=== PATIENT | male | born 1965 | race Two or more races ===

== ENCOUNTER 2022-07-04 09:15 | Inpatient (IN) | payer OTHER ==
[~2022-07-04] VITALS: Ht 177.8 cm; Wt 115.7 kg
--- NOTE | 2022-07-04 10:20 | NUR ---
ESTABLISHED IV RIGHT WRIST 20G. BLOOD DRAWN WITH CULTURES SENT TO LAB.
[2022-07-04] MEDS ORDERED: VANCOMYCIN 1 GM in IV D5W 250 ML IV ONE (10:30)
[2022-07-04] MEDS ORDERED: ACETAMINOPHEN ES 500 MG TABLET PO ONE (10:30)
[2022-07-04] MEDS ORDERED: CEFEPIME 1 GM in IV D5W 50 ML IV ONE (10:30)
[2022-07-04 10:33] LABS: EOSINOPHILS % (AUTO) 0.5 % (0.0-6.0); HEMATOCRIT 41 % (39-51); HEMOGLOBIN 13.5 g/dL (13.5-17.5); LYMPHOCYTES # (AUTO) 0.4 K/uL (0.8-4.8); MEAN CORPUSCULAR HGB CONC 33 g/dl (31.0-36.0); MEAN CORPUSCULAR VOLUME 84 fL (80-96); MONOCYTES # (AUTO) 0.6 K/uL (0.1-1.30); MONOCYTES % (AUTO) 6.3 % (2.0-12.0); NEUTROPHILS # (AUTO) 9.2 K/uL (1.8-8.9); NEUTROPHILS % (AUTO) 89.2 % (43.0-81.0); PLATELET COUNT (AUTO) 320 K/uL (150-450); RED BLOOD CELL COUNT(AUTO) 4.94 MIL/uL (4.5-6.0); WHITE BLOOD COUNT (AUTO) 10.3 K/uL (4.3-11.0)
[2022-07-04] MEDS ORDERED: ACETAMINOPHEN ES 500 MG TABLET ONE ×2 (10:53→10:54)
--- NOTE | 2022-07-04 11:00 | NUR ---
[id number] FROM [facility] C/O BILAT FOOT PAIN. SOB SINCE THIS AM. FEBRILE RETAIL SALES LEAD. PLACED ON BED, AAOX3, BREATHING UNLABORED SATURATING AT 94% WITH O2 5LIT VIA NC
--- NOTE | 2022-07-04 11:00 | NUR ---
Delilah foreman in EDM - 07/04/22 at 1219 by ASHLEY [id number] FROM [facility] C/O BILAT FOOT PAIN. SOB SINCE THIS AM. FEBRILE TIP LENGTH CHECKER. PLACED ON BED, AAOX4, BREATHING UNLABORED SATURATING AT 95% WITH O2 5LIT VIA NC.
--- NOTE | 2022-07-04 11:04 | NUR ---
PATIENT CURRENTLY OUT OF UNIT FOR CT EXAM
[2022-07-04 11:10] LABS: CALCIUM, SERUM 8.3 mg/dL (8.5-10.1); CARBON DIOXIDE 26 mmol/L (21-32); CHLORIDE 98 mmol/L (98-107); CREATININE 0.8 mg/dL (0.6-1.3); GLUCOSE 175 mg/dL (74-106); POTASSIUM 3.3 mmol/L (3.5-5.1); SODIUM SERUM 135 mmol/L (136-145); UREA NITROGEN, BLOOD 8 mg/dL (7-18)
--- NOTE | 2022-07-04 11:17 | NUR ---
Delilah foreman in [facility] - 07/04/22 at 1136 by DESTINEE room 321
[2022-07-04 11:32] LABS: ALANINE AMINOTRANSFERASE 23 U/L (12-78); ALBUMIN 2.9 g/dL (3.4-5.0); ALCOHOL, BLOOD < 3 mg/dL (0-0); ALKALINE PHOSPHATASE 196 U/L (46-116); ASPARTATE AMINOTRANSFERASE 41 U/L (15-37); BILIRUBIN,DIRECT 3.2 mg/dL (0.0-0.2); BILIRUBIN,TOTAL 5.2 mg/dL (0.2-1.0); TOTAL PROTEIN, SERUM 8.2 g/dL (6.4-8.2)
[2022-07-04 11:34] LABS: ACETAMINOPHEN 0 ug/ml (10-30)
--- NOTE | 2022-07-04 11:38 | NUR ---
covid swab taken
[2022-07-04 11:50] LABS: SERUM AMMONIA 97 umol/L (11-32)
[2022-07-04 11:52] LABS: ALCOHOL, BLOOD < 3 mg/dL (0-0)
[2022-07-04 12:01] LABS: THYROID STIMULATING HORMONE 2.367 uIU/mL (0.358-3.74)
--- NOTE | 2022-07-04 12:24 | NUR ---
NEY NEGRETE [phone] AUTH #[id number]
--- NOTE | 2022-07-04 12:38 | NUR ---
COVID + PER LAB.
--- NOTE | 2022-07-04 13:55 | NUR ---
REPORT GIVEN TO REMBERTO DE LA GARZA RN ROOM 108 FOR LAMBERT
[2022-07-04] MEDS ORDERED: ONDANSETRON HCL/PF 4 MG/2 ML VIAL IVP PRN (15:00)
[2022-07-04] MEDS ORDERED: MAGNESIUM HYDROXIDE 30 ML UDC PO PRN (15:00)
[2022-07-04] MEDS ORDERED: HYDROCODONE/APAP 5/325MG TABLET PO PRN (15:00)
[2022-07-04] MEDS ORDERED: MAG HYDROX/AL HYDROX/SIMETH 30 ML UDC PO PRN (15:00)
[2022-07-04] MEDS ORDERED: Z GUARD REMEDY 4 OZ OINT TP PRN (15:00)
[2022-07-04] MEDS ORDERED: ZOLPIDEM TARTRATE 5 MG TABLET PO PRN (15:00)
--- NOTE | 2022-07-04 15:30 | NUR ---
ADMISSION NOTE RECEIVED PATIENT FROM ER, A/O X3, LETHARGIC BUT ABLE TO COMMUNICATE. ON OXYGEN AT 4LPM TOLERATING WELLL WITH SPO2 OF 97%. VITALS TAKEN AND RECORDED. PLACED ON TELE MONITOR WITH READING OF SINUS TACHYCARDIA HR 109. SAFETY MEASURES IMPLEMENTED. WILL CONTINUE TO MONITOR.
[2022-07-04] MEDS: ENOXAPARIN SODIUM 40 MG/0.4 ML DISP.SYRIN SQ SCH (16:57)
[2022-07-04] MEDS ORDERED: POTASSIUM CHLORIDE 20 MEQ TAB.PRT.SR PO ONE (17:30)
[2022-07-04] MEDS: CEFEPIME 2 GM in IV D5W 100 ML IV SCH (18:04)
[2022-07-04 19:03] VITALS: BP 122/73
--- NOTE | 2022-07-04 19:30 | NUR ---
RN OPENING NOTE PT SLEEPING IN R LATERAL POSITION. HOB ELEVATED. O2 SAT OF 97% ON 4 LPM NC. SKIN WARM AND DRY. BLE PITTING EDEMA NOTED. R WRIST 20G SALINE LOCKED. NO ACUTE SIGNS OF DISTRESS. BED LOCKED AND AT LOWEST LEVEL WITH 2 RAILS UP. CALL LIGHT WITHIN REACH.
--- NOTE | 2022-07-04 19:30 | NUR ---
TEACHERS' AIDE CLOSING NOTE PATIENT AWAKE IN BED A/O X 3. ON O2 INHALATION @ 4 LPM VIA NASAL CANNULA; WELL TOLERATED. BREATHING EQUAL AND UNLABORED. IN NO ACUTE DISTRESS. NO C/O ANY PAIN OR DISCOMFORT AT THIS TIME. ON TELE MONITORING WITH CURRENT READING OF SINUS TACHY HR-113 BPM. WITH IV ACCESS ON RIGHT WRIST 20G; PATENT, INTACT AND SALINE LOCKED. ALL MEDS GIVEN. KEPT COMFORTABLE. SAFETY MEASURES MAINTAINED: CALL LIGHT AND TABLE WITHIN REACH, SIDE RAILS UP X 2, BED IN LOWEST LOCKED POSITION. ENDORSED TO NEXT NOD FOR LAMBERT.
[2022-07-04 20:00] VITALS: BP 105/45
[2022-07-04] MEDS: VANCOMYCIN 1.25 GM in IV D5W 250 ML IV SCH (20:45)
[2022-07-05] VITALS: BP 109/59
[2022-07-05] MEDS: CEFEPIME 2 GM in IV D5W 100 ML IV SCH ×3 (03:14→18:05)
[2022-07-05 04:00] VITALS: BP 95/41
[2022-07-05] MEDS: VANCOMYCIN 1.25 GM in IV D5W 250 ML IV SCH ×3 (04:14→20:58)
[2022-07-05] MEDS: ACETAMINOPHEN 325 MG TABLET PO PRN ×2 (04:22→17:41)
--- NOTE | 2022-07-05 04:50 | NUR ---
0453 PATIENT NOTED TO HAVE RUNS OF V TACH 17 BEATS, LUCY SIMPSON NOTIFIED WITH INSTRUCTIONS TO DO AM LABS NOW. TICKET MANAGER PARDEEP MADE AWARE.
[2022-07-05 05:59] LABS: BASOPHILS % (AUTO) 0.5 % (0.0-2.0); EOSINOPHILS % (AUTO) 0.3 % (0.0-6.0); HEMATOCRIT 38 % (39-51); HEMOGLOBIN 12.5 g/dL (13.5-17.5); LYMPHOCYTES # (AUTO) 0.7 K/uL (0.8-4.8); LYMPHOCYTES % (AUTO) 8.6 % (20.0-44.0); MEAN CORPUSCULAR HGB CONC 33 g/dl (31.0-36.0); MEAN CORPUSCULAR VOLUME 83 fL (80-96); MONOCYTES # (AUTO) 1.2 K/uL (0.1-1.30); MONOCYTES % (AUTO) 14.4 % (2.0-12.0); NEUTROPHILS # (AUTO) 6.5 K/uL (1.8-8.9); NEUTROPHILS % (AUTO) 76.2 % (43.0-81.0); PLATELET COUNT (AUTO) 276 K/uL (150-450); RED BLOOD CELL COUNT(AUTO) 4.59 MIL/uL (4.5-6.0); WHITE BLOOD COUNT (AUTO) 8.5 K/uL (4.3-11.0)
[2022-07-05 06:15] LABS: CALCIUM, SERUM 8.3 mg/dL (8.5-10.1); CREATININE 0.7 mg/dL (0.6-1.3); MAGNESIUM 1.8 mg/dL (1.8-2.4); PHOSPHORUS 3.2 mg/dL (2.5-4.9); POTASSIUM 3.7 mmol/L (3.5-5.1)
--- NOTE | 2022-07-05 07:06 | NUR ---
RN CLOSING NOTE PT SLEEPING BUT AROUSABE TO TOUCH. SKIN IS WARM AND DRY. RESPIRATIONS SHALLOW AND TACHYPNIC ON 4 LPM NC. PT'S TEMP HAS IMPROVED TO 98 AFTER ADMINISTERING TYLENOL. PROVIDER NOTIFIED OF MULTIPLE VTACH BEATS DETECTED DURING SHIFT. CONDOM CATHETER INTACT AND DRAINING APPROPRIATELY. R WRIST 20G SL. BED LOCKED AND AT LOWEST LEVEL. 2 RAILS UP AND CALL LIGHT WITHIN REACH.
--- NOTE | 2022-07-05 07:47 | NUR ---
FIRST BEATER OPENING NOTE Patient in bed, asleep. A/O x 2. On O2 at 4 LPM via NC. IV access on Right wrist #20 SL, intact and patent. Condom catheter in place. On tele monitoring showing SR, HR on the 90's. BLE redness noted. Safety precautions in place: bed in low, locked position; siderails up x 2; call light within reach. Will continue to monitor.
[2022-07-05 08:00] VITALS: BP 108/62
[2022-07-05] MEDS: PANTOPRAZOLE 40 MG TABLET.DR PO SCH (08:38)
[2022-07-05] MEDS ORDERED: LACTULOSE 10 G/15 ML UDC (PYXIS) PO PRN (10:00)
[2022-07-05] MEDS: DEXAMETHASONE SOD PHOSPHATE 10 MG/ML VIAL IV SCH (10:45)
--- NOTE | 2022-07-05 11:00 | NUR ---
RN NOTE IV access on Right wrist infiltrated. IV re-inserted same area, Right wrist #18, flushes well.
[2022-07-05 12:00] VITALS: BP 106/66
--- NOTE | 2022-07-05 13:00 | NUR ---
RN NOTE Both nares swabbed for Rapid antigen influenza test, sent to lab.
[2022-07-05 16:00] VITALS: BP 118/71
[2022-07-05] MEDS: ENOXAPARIN SODIUM 40 MG/0.4 ML DISP.SYRIN SQ SCH (16:30)
[2022-07-05] MEDS: MORPHINE SULFATE INJ 2 MG/ML DISP.SYRIN IV PRN ×2 (17:42→22:56)
--- NOTE | 2022-07-05 19:20 | NUR ---
CONFECTIONERY MAKER CLOSING NOTE Patient in bed, resting. A/O x 2, able to make needs known. On O2 at 4 LPM via NC. IV access on Right wrist #18 SL, intact and patent. Condom catheter in place draining to an luther colored urine with an output of 540 cc. . On tele monitoring showing Sinus tachycardia, HR 106. BLE redness and dryness noted. All needs attended to. Due meds given. Safety precautions in place: bed in low, locked position; siderails up x 2; call light within reach. Will endorse to typer nurse for LAMBERT.
--- NOTE | 2022-07-05 19:30 | NUR ---
CALENDER LET OFF HELPER OPENING NOTE Patient in bed, asleep. Pt A/O x 2. No s/s of respiratory distress noted. No c/o pain at this time. On O2 at 4 L PM via NC. IV access to Right wrist #20 SL, intact and patent. Condom catheter in place. On tele monitoring showing SR. BLE redness noted. Safety precautions in place: bed in low, locked position; side rails up x 2; call light within reach. Will continue to monitor.
[2022-07-05 20:00] VITALS: BP 125/76
--- NOTE | 2022-07-05 22:55 | NUR ---
RN NOTE PT C/O PAIN TO BLE. MORPHINE ADMINISTERED TO PT FOR PAIN.
[2022-07-06] VITALS: BP 118/75
[2022-07-06] MEDS: CEFEPIME 2 GM in IV D5W 100 ML IV SCH ×3 (02:58→18:04)
[2022-07-06 04:00] VITALS: BP 138/80
[2022-07-06] MEDS: VANCOMYCIN 1.25 GM in IV D5W 250 ML IV SCH ×2 (04:32→11:42)
--- NOTE | 2022-07-06 05:25 | NUR ---
RN NOTE PT REPORT PAIN TO BLE. PAIN MED MORPHINE ADMINISTERED TO PT.
[2022-07-06] MEDS: MORPHINE SULFATE INJ 2 MG/ML DISP.SYRIN IV PRN ×3 (05:27→19:50)
--- NOTE | 2022-07-06 07:05 | NUR ---
SCRAPER HAND CLOSING NOTE Patient in bed, resting. A/O x 2, able to make needs known. On O2 at 4 LPM via NC. IV access on Right wrist #18 SL, intact and patent. Condom catheter in place draining luther colored urine with an output of 250 cc. . On tele monitoring showing Sinus tachycardia, HR 92. BLE redness and dryness noted. All needs attended to. Due meds given. Safety precautions in place: bed in low, locked position; side rails up x 2; call light within reach. Will endorse to AM shift nurse for LAMBERT.
[2022-07-06 07:15] LABS: BASOPHILS % (AUTO) 0.1 % (0.0-2.0); HEMATOCRIT 39 % (39-51); HEMOGLOBIN 12.8 g/dL (13.5-17.5); LYMPHOCYTES # (AUTO) 0.6 K/uL (0.8-4.8); LYMPHOCYTES % (AUTO) 9.1 % (20.0-44.0); MEAN CORPUSCULAR HGB CONC 33 g/dl (31.0-36.0); MEAN CORPUSCULAR VOLUME 84 fL (80-96); MONOCYTES # (AUTO) 0.6 K/uL (0.1-1.30); MONOCYTES % (AUTO) 9.3 % (2.0-12.0); NEUTROPHILS % (AUTO) 81.5 % (43.0-81.0); PLATELET COUNT (AUTO) 300 K/uL (150-450); RED BLOOD CELL COUNT(AUTO) 4.66 MIL/uL (4.5-6.0); WHITE BLOOD COUNT (AUTO) 6.2 K/uL (4.3-11.0)
--- NOTE | 2022-07-06 07:27 | NUR ---
HAT BODY INSPECTOR OPENING NOTE RECEIVED PT AWAKE AND RESTING IN BED. PT A/O X2, ABLE TO MAKE NEEDS KNOWN. PT ON O2 AT 4L/MIN VIA NASAL CANNULA, TOLERATED WELL. NO SOB NOTED. NOT IN ANY SIGN OF RESPIRATORY DISTRESS. PT ON CARDIAC TELE MONITOR WITH CURRENT READING SINUS RHYTHM, HR 80. NO C/O CARDIAC DISTRESS VOICED OUT AT THIS TIME. IV ACCESS ON RIGHT WRIST G#18 INTACT AND PATENT. SAFETY MEASURES IN PLACE: BED IN LOWEST AND LOCKED POSITION, SIDE RAILS UPX2, AND CALL LIGHT WITHIN REACH. WILL CONTINUE TO MONITOR PT.
[2022-07-06 07:34] LABS: CALCIUM, SERUM 8.6 mg/dL (8.5-10.1); CREATININE 0.7 mg/dL (0.6-1.3); PHOSPHORUS 4.2 mg/dL (2.5-4.9); POTASSIUM 4.7 mmol/L (3.5-5.1)
[2022-07-06 08:00] VITALS: BP 111/70
[2022-07-06] MEDS: DEXAMETHASONE SOD PHOSPHATE 10 MG/ML VIAL IV SCH (08:17)
[2022-07-06] MEDS: PANTOPRAZOLE 40 MG TABLET.DR PO SCH (08:17)
[2022-07-06 08:24] LABS: ALBUMIN 2.5 g/dL (3.4-5.0); BILIRUBIN,DIRECT 2.2 mg/dL (0.0-0.2); BILIRUBIN,TOTAL 2.8 mg/dL (0.2-1.0); TOTAL PROTEIN, SERUM 7.8 g/dL (6.4-8.2)
[2022-07-06 09:31] LABS: ALBUMIN 2.5 g/dL (3.4-5.0); BILIRUBIN,DIRECT 2.2 mg/dL (0.0-0.2); BILIRUBIN,TOTAL 2.8 mg/dL (0.2-1.0); TOTAL PROTEIN, SERUM 7.8 g/dL (6.4-8.2)
[2022-07-06 12:00] VITALS: BP 116/72
[2022-07-06 15:04] LABS: BILIRUBIN,URINE 1+ (NEGATIVE); COLOR,URINE YELLOW (YELLOW); LEUKOCYTE ESTERASE ,URINE NEGATIVE (NEGATIVE); NITRITE, URINE NEGATIVE (NEGATIVE); PROTEIN,URINE TRACE mg/dl (NEGATIVE); UGLUCOSE NEGATIVE (NEGATIVE)
[2022-07-06] MEDS: ENOXAPARIN SODIUM 40 MG/0.4 ML DISP.SYRIN SQ SCH (15:04)
[2022-07-06 16:00] VITALS: BP 131/63
[2022-07-06 16:32] LABS: BACTERIA,URINE 2+ /HPF (None Seen); CALCIUM OXALATE CRYSTALS,UR Few /HPF (None Seen); RBC,URINE 0-2 /HPF (0-2); WBC,URINE 0-2 /HPF (0-3)
--- NOTE | 2022-07-06 18:46 | NUR ---
SAP BASIS ARCHITECT CLOSING NOTE PT AWAKE AND RESTING IN BED. PT A/O X3, ABLE TO MAKE NEEDS KNOWN. PT ON O2 AT 4L/MIN VIA NASAL CANNULA, TOLERATED WELL. NO SOB NOTED. NOT IN ANY SIGN OF RESPIRATORY DISTRESS. PT ON CARDIAC TELE MONITOR WITH CURRENT READING SINUS RHYTHM, HR 78. NO C/O CARDIAC DISTRESS VOICED OUT AT THIS TIME. IV ACCESS ON RIGHT WRIST G#18 INTACT AND PATENT. ALL NEEDS ATTENDED. KEPT CLEAN AND COMFORTABLE AT ALL TIMES. SAFETY MEASURES IN PLACE: BED IN LOWEST AND LOCKED POSITION, SIDE RAILS UPX2, AND CALL LIGHT WITHIN REACH. WILL ENDORSE TO TESTER OPERATOR HELPER NURSE FOR LAMBERT.
--- NOTE | 2022-07-06 19:30 | NUR ---
RN OPENING NOTE RECEIVED PT IN BED, AWAKE. PT IS A/O X 2-3, ABLE TO MAKE NEEDS KNOWN. CURRENTLY ON O2 AT 4L/MIN VIA NASAL CANNULA, TOLERATING WELL. NO S/SX OF ACUTE RESPI DISTRESS NOTED AT THIS TIME. ON CARDIAC TELE MONITOR WITH CURRENT READING OF SINUS RHYTHM, HR 90s. IV ACCESS ON RIGHT WRIST G#18 INTACT AND PATENT, SL. PT HAS BLE CELLULITIS UPON ASSESSMENT WITH DRY SKIN NOTED. CONDOM CATH IN PLACE DRAINING YELLOW URINE BY GRAVITY. ALL SAFETY MEASURES IN PLACE: BED IN LOWEST AND LOCKED POSITION, SIDE RAILS UPX2, AND CALL LIGHT WITHIN REACH. WILL CONTINUE TO MONITOR PT.
[2022-07-06] MEDS: VANCOMYCIN 1.25 GM in IV NS 0.9% 250 ML IV SCH (19:41)
[2022-07-06 20:00] VITALS: BP 131/81
[2022-07-07] VITALS (7 sets, daily range): BP systolic 115–134; BP diastolic 77–91
[2022-07-07] MEDS: CEFEPIME 2 GM in IV D5W 100 ML IV SCH ×3 (02:49→18:28)
[2022-07-07] MEDS: VANCOMYCIN 1.25 GM in IV NS 0.9% 250 ML IV SCH (03:09)
--- NOTE | 2022-07-07 05:49 | NUR ---
RN CLOSING NOTE NO SIGNIFICANT CHANGE T/O THE NIGHT. ALL DUE MEDS GIVEN. NEEDS ATTENDED TO. PM CARE DONE. TURNED AND REPOSITIONED. WILL ENDORSE TO AM SHIFT NURSE FOR LAMBERT.
[2022-07-07 06:51] LABS: BASOPHILS % (AUTO) 0.1 % (0.0-2.0); HEMATOCRIT 40 % (39-51); HEMOGLOBIN 12.8 g/dL (13.5-17.5); LYMPHOCYTES # (AUTO) 0.7 K/uL (0.8-4.8); MEAN CORPUSCULAR HGB CONC 32 g/dl (31.0-36.0); MEAN CORPUSCULAR VOLUME 84 fL (80-96); NEUTROPHILS # (AUTO) 8.9 K/uL (1.8-8.9); NEUTROPHILS % (AUTO) 83.9 % (43.0-81.0); PLATELET COUNT (AUTO) 304 K/uL (150-450); RED BLOOD CELL COUNT(AUTO) 4.72 MIL/uL (4.5-6.0); WHITE BLOOD COUNT (AUTO) 10.6 K/uL (4.3-11.0)
--- NOTE | 2022-07-07 07:12 | NUR ---
WOUND CARE CONSULT: REVIEWED CHART, NURSING DOCUMENTATION AND PHOTOS WHICH INDICATE REDNESS TO LOWER LEGS AND LEFT HEEL WOUND WELL RASH TO GROIN FOLDS, PERINEUM, PRESENT ON ADMISSION. RECOMMEND DPM CONSULT. DR VICTOR TO BE CALLED THIS AM. RECOMMENDATIONS MADE FOR SKIN PROTECTION. DISCUSSED WITH NURSING STAFF. PT HAS CONDOM CATH. IN AGREEMENT WITH PLAN OF CARE.
[2022-07-07 07:15] LABS: CALCIUM, SERUM 8.6 mg/dL (8.5-10.1); CREATININE 0.7 mg/dL (0.6-1.3); MAGNESIUM 2.1 mg/dL (1.8-2.4); PHOSPHORUS 3.2 mg/dL (2.5-4.9); POTASSIUM 4.6 mmol/L (3.5-5.1)
--- NOTE | 2022-07-07 07:25 | NUR ---
FRUIT CULLER OPENING NOTE RECEIVED PT AWAKE A/O X3-4, WITH HOB ELEVATED, ABLE TO MAKE NEEDS KNOWN. PT ON OXYGEN THERAPY AT 4L/MIN VIA NASAL CANNULA SATURATING AT 99%, NO SOB NOTED. NOT IN ANY SIGN OF RESPIRATORY DISTRESS. ON TELE MONITORING WITH CURRENT READING SINUS RHYTHM WITH BPM OF 83. DENIES PAIN NOR DISCOMFORT AT THIS TIME. IV ACCESS ON RIGHT WRIST G#18 INTACT AND PATENT, FLUSHING WELL. WITH CONDOM CATHETER DRAINING PALE YELLOW URINE VIA GRAVITY. ON COVID-19 ISOLATION, SAFETY MEASURES IN PLACE: BED IN LOWEST AND LOCKED POSITION, SIDE RAILS UPX2, AND CALL LIGHT AND TRAY TABLE WITHIN REACH. WILL CONTINUE TO MONITOR PATIENT
[2022-07-07 07:34] LABS: C-REACTIVE PROTEIN 3.6 mg/dL (0.0-0.9)
[2022-07-07] MEDS: PANTOPRAZOLE 40 MG TABLET.DR PO SCH (08:12)
[2022-07-07] MEDS: DEXAMETHASONE SOD PHOSPHATE 10 MG/ML VIAL IV SCH (08:13)
[2022-07-07] MEDS: CLOTRIMAZOLE 1% 15 GM TUBE TP SCH ×2 (09:01→16:37)
--- NOTE | 2022-07-07 10:45 | NUR ---
RN NOTES - PATIENT PICKED UP BY CT SCAN STAFF
--- NOTE | 2022-07-07 11:05 | NUR ---
RN NOTES - PATIENT SENT BACK BY CT SCAN STAFF AND VANCO TROUGH SAMPLE TAKEN BY LAB
--- NOTE | 2022-07-07 11:15 | NUR ---
RN NOTES - [facility] TROUGH IS 20.85, RELAYED TO PHARMACY
--- NOTE | 2022-07-07 11:34 | NUR ---
"SW Consult: SW consult requested for patient possible homelessness and substance abuse. SW conducted a phone assessment with patient who is in [facility] of [facility] with possible COVID +. Patient was brought in due to cellulitis. Patient presents alert and oriented x3 (self,place,time). Patient stated he was brought to the hospital due to infection. Patient stated that he has been homeless for the past 7 years and has been in the system with [address] [address]; ([phone]) who have helped him with placement. Patient stated that he has no family or friends. Patient is disabled. Patient stated that his source of income is $1,000. He stated that he has been feeling somewhat depressed. SW assessed for suicidal or homicidal, pt denied. SW assessed any hallucinations visual/auditory, pt denied. SW assessed for substance abuse and pt denied. Pt denied any use of drugs. He stated that he only smokes cigarettes. SW offered pt resources and pt was accepting of shelters and substance abuse referrals. DC Plan: Patient stated that he has been homeless for the past 7 years and has been in the system with [address] [address]; ([phone]) who have helped him with placement or CM will follow doctor's recommendation. Substance Abuse resources provided included: [facility] Substance Abuse Self-Helpline ([facility]) ; CRI -[facility]LP [address] [facility] [place]. [place] [address] ; [facility] [address] [facility] [address] ; [facility] [address] [facility] [address] ; [facility] [address] [facility] [address] ; [facility] 49[address] [facility] [address] ; [facility] 909 [facility] [phone] ; [facility] Substance Abuse Helpline([facility] ; [facility] ; [facility] [place]; [facility] [place]; [facility] [place]; I-[facility] Inter [facility] Drug Abuse Recovery [place]; [facility]; [facility]; [facility]; [facility]. [facility]; Alcoholics Anonymous -SFV; Rg-Wnbf-Jkoewfm ; Marijuana Anonymous -SFV; Narcotics Anonymous www.na.org; Shelters: Mor Chiquita Rascon Provider: Gricelda of [place] Address: [address] [place] [address] Blayne [place], [address] # of Beds: 47 Population Served: [facility] 6 | [facility] Provider: Home at Last Address: [address], [facility] # of Beds: 66 Population Served: [facility] [place] [facility] [place] Provider: First to Serve Address: [address] [facility], [address] # of Beds: 56 Population Served: [facility] [place] Provider: SSOliverio/Ms. [facility] Address: [address] [facility], [address] # of Beds: 49 Population Served: [facility] 8 | [facility] Provider: First to Serve Address: [address] [facility], [address] # of Beds: 37 Population Served: [facility] Hygiene: [facility]: [address] Alex [place] ; [facility] [place] [facility] [address] [facility] ; [facility] 6907 Tristin Miguel . Food Resources: [place] [facility] at [facility]- [address]. [place]; Meet Each Need with Dignity ([facility]) [address] [address] Parmelee; [facility] Food [facility]ry 4340 [facility]; [facility] 4633 [facility] [place]. Mental Health resources provided: [facility] [address] [place] [address] ; [facility] [address] [facility] [address], [place], [place] [id number] ; [facility] [address] [place], [place] [id number] ; [facility] [address] [place], [place] [address] Healthcare Clinics: [facility] [address] [facility], [address] [place]. [place] ; [facility] [address] [facility] [address] [place] [address]; [facility] [place] [address] [facility]. [place] [phone] Counseling--Outpatient [facility] [address] [facility], [address] [place], [place] [address] (Specializes in in-depth psychotherapy for emotional distress: anxiety, depression, interpersonal conflicts, life transitions, childhood abuse) [facility] [address] [place], [place] [phone] (Assist with solving problem marital difficulties, separation & divorce, aging parents, & grief, chronic & terminal illness) [facility] [address] [place], [place] [phone] (Deal with loss & grief, anxiety, marital difficulties) Homebound/Mental Health Services [address] [facility], [address] [place], [place] [address] (Provide in-home mental services to people who are incapable of leaving their homes) [facility] Elderly Senior Service/Resource Center [address] [place] [address] [facility] [address] [place] [address] PSYCHIATRIC OUTPATIENT SERVICES [facility] Partial Hospitalization and Intensive Outpatient Program (Managed Care and [place] Only)[address] [address] [facility] [phone] [facility] Partial Hospitalization and Outpatient [id number] Ash[facility]Formerly [facility] [address] [place], [place] [phone] [facility] Mental Health [place] [id number] Nathanielaracelis [facility] [address] [place], [place] [phone] [facility] Partial Hospitalization and Outpatient [id number] [place], [phone] Substance Abuse resources provided included: [facility] Substance Abuse Self-Helpline ([facility]) ; [facility] [address] [facility]. [place] [address] ; [facility] [address] [facility] [address] ; [facility] [address] [facility] [address] ; [facility] [address] [facility] [address] ; [facility] 4940 [facility] [address] ; [facility] 909 [facility] [address] ; [facility] Substance Abuse Helpline([facility] ; [facility] ; [facility] [place]; [facility] [place]; [facility] Tristin Montoya; [facility] [place]; [place]; [facility] Wendy; [facility]. Hiren Rascon; Alcoholics Anonymous -SFV; Cd-Wxgu-Kewtsgk ; Marijuana Anonymous -SFV; Narcotics Anonymous www.na.org;"
[2022-07-07] MEDS: MORPHINE SULFATE INJ 2 MG/ML DISP.SYRIN IV PRN (13:05)
--- NOTE | 2022-07-07 13:05 | NUR ---
RN NOTES - PT REPORTING 9/10 PAIN IN THE LEG, GIVEN MORPHINE 2 MG IV ORDERED, WILL CONTINUE TO MONITOR
[2022-07-07] MEDS: VANCOMYCIN 1 GM in IV D5W 250 ML IV SCH ×2 (13:06→21:16)
--- NOTE | 2022-07-07 16:00 | NUR ---
RN NOTES - PATIENT REFUSING HIS CONDOM CATHETER ON.
--- NOTE | 2022-07-07 16:02 | NUR ---
RN NOTES - RIGHT WRIST IV ACCESS LEAKING, STARTED A NEW LINE RIGHT HAND G#18, PATENT, FLUSHING WELL
[2022-07-07] MEDS: ENOXAPARIN SODIUM 40 MG/0.4 ML DISP.SYRIN SQ SCH (16:07)
--- NOTE | 2022-07-07 16:30 | NUR ---
RN NOTES - DR VICTOR AT BEDSIDE, PLAN TO DO DEBRIDEMENT OF LEFT FOOT TOMORROW, CONSENTS TO BE SECURED
--- NOTE | 2022-07-07 18:45 | NUR ---
SUNITHA NOTES - LEFT HEEL WOUND DEBRIDEMENT CONSENTS SECURED.
--- NOTE | 2022-07-07 19:02 | NUR ---
DESTINATION IMAGINATION COORDINATOR CLOSING NOTE AWAKE A/O X3-4, WITH HOB ELEVATED, STILL ON OXYGEN THERAPY AT 4L/MIN VIA NASAL CANNULA SATURATING AT 99%, NO SOB NOTED. NOT IN ANY SIGN OF RESPIRATORY DISTRESS. TELE MONITORING SHOWING SINUS RHYTHM WITH BPM OF 82. DENIES PAIN NOR DISCOMFORT AT THIS TIME. NEW IV ACCESS ON RIGHT HAND G#22 INTACT AND PATENT, FLUSHING WELL. ALL NEEDS MET, ALL DUE MEDS GIVEN. SAFETY MEASURES IN PLACE: BED IN LOWEST AND LOCKED POSITION, SIDE RAILS UPX2, AND CALL LIGHT AND TRAY TABLE WITHIN REACH. WILL ENDORSE TO NEPHROLOGY NURSE NURSE
--- NOTE | 2022-07-07 19:30 | NUR ---
REPORTS ANALYST OPENING NOTES - RECEIVED PATIENT LAYING FLAT IN BED AWAKE. A/O X3, LETHARGIC. SHORT OF BREATH AND LABORED BREATHING NOTED. ELEVATED HOB TO SEMI-STYLES'S. ON O2 AT 4LPM VIA NASAL CANULA. DENIES PAIN AT THIS TIME. VERBALIZED HE DOESN'T WANT TO PROCEED WITH THE DEBRIDEMENT TOMORROW. ON TELE MONITOR READING SINUS RHYTHM AT 85 BPM. HAS RIGHT HAND IV ACCESS #22G AND SALINE LOCKED. NO S/S OF INFILTRATION NOTED. SAFETY MEASURES IN PLACE: BED LOCKED AND IN LOW POSITION, SIDE RAILS UP X3, CALL LIGHT WITHIN REACH. WILL CONTINUE POC.
--- NOTE | 2022-07-08 00:05 | NUR ---
PATIENT REFUSING CARE: PULLED OUT HIS IV LINE, REMOVED HIS NASAL CANULA AND LEADS, DOESN'T WANT US TO CHECK HIS VITAL SIGNS. EXPLAINED RISKS AND BENEFITS MULTIPLE TIMES, STILL REFUSING. PATIENT IS SHORT OF BREATH. MD AWARE. WILL CONTINUE TO MONITOR PATIENT. Addendum: 07/08/22 at 0033 by December LINDEN HELTON ORDERED XANAX 0.25MG ONCE FOR PATIENT TO RELAX. NOTED AND CARRIED OUT.
[2022-07-08] MEDS ORDERED: ALPRAZOLAM 0.25 MG TABLET PO ONE (01:00)
[2022-07-08] MEDS: CEFEPIME 2 GM in IV D5W 100 ML IV SCH ×3 (03:00→19:00)
[2022-07-08 04:00] VITALS: BP 101/63
--- NOTE | 2022-07-08 04:12 | NUR ---
PATIENT VERBALIZED HE WANTS TO LEAVE. REMBERTO JONES SPOKE WITH PATIENT. WE EXPLAINED TO HIM THE AMA FORM BUT HE REFUSED TO SIGN IT. CALLED SECURITY TO SPEAK WITH PATIENT WELL. HE WAS TELLING HIM TO CALL THE FBI. SECURITY ADVISED TO LET HIM SIT IN HIS CHAIR FOR NOW. BREATHING IS LABORED AND SHORT OF BREATH ON ROOM AIR, STILL REFUSING O2. WE WILL CONTINUE TO MONITOR PATIENT'S CONDITION.
[2022-07-08] MEDS: VANCOMYCIN 1 GM in IV D5W 250 ML IV SCH ×4 (05:00→23:00)
--- NOTE | 2022-07-08 06:50 | NUR ---
GRANITE SETTER CLOSING NOTES - PATIENT SITTING IN CHAIR, STILL REFUSING CARE AND NON-COMPLIANT. LETHARGIC AND SHALLOW BREATHING NOTED. PATIENT IS PARANOID AND THINKS THAT PEOPLE ARE TRYING TO KILL HIM. NO IV ACCESS AND TELE MONITORING ON STAND BY. ABLE TO AMBULATE TO RESTROOM WITH UNSTEADY GAIT. PERINEAL CARE AND SKIN CARE RENDERED. WILL CONTINUE TO MONITOR FOR SAFETY AND ENDORSE TO NEXT SHIFT FOR CONTINUITY OF CARE.
[2022-07-08] MEDS: PANTOPRAZOLE 40 MG TABLET.DR PO SCH (07:30)
--- NOTE | 2022-07-08 07:39 | NUR ---
pt refused morning blood draw
--- NOTE | 2022-07-08 08:00 | NUR ---
DESIZING MACHINE BACK TENDER OPENING NOTES RECEIVED PATIENT SITTING ON THE EGE OF THE BED, AWAKE, A/O X 3. PATIENT HAS NO IV ACCESS, AND NO EXTERNAL VESSEL BUILDER, ACCORDING TO PREVIOUS SHIFT NIGHT NURSE -PT TOOK IT OUT HIMSELF. PATIENT REFUSE TO GET HIS VITAL SIGNS CHECKED, SINCE PRIOR NIGHT. PATIENT REFUSED TO GIVE HIS BLOOD FOR LAB CHECK. START WANDERING AROUND ROOM, REFUSED TO GO BACK TO BED, DEFECATED ON THE CHAIR AND FLOOR. DENIES PAIN AT THIS TIME. VERBALIZED HE DOESN'T WANT TO PROCEED WITH THE DEBRIDEMENT NOR TREAT OR CHECK HIS WOUND.
--- NOTE | 2022-07-08 08:09 | NUR ---
PT REFUSED VITAL SIGNS
--- NOTE | 2022-07-08 08:38 | NUR ---
RN NOTE WOUND CARE DOCTOR CAME TO SEE PT.PT REFUSED WOUND DEBRIDEMENT AT THIS TIME
[2022-07-08] MEDS: CLOTRIMAZOLE 1% 15 GM TUBE TP SCH ×2 (09:00→16:15)
[2022-07-08] MEDS: DEXAMETHASONE SOD PHOSPHATE 10 MG/ML VIAL IV SCH (09:00)
--- NOTE | 2022-07-08 09:17 | NUR ---
RN NOTE PT REFUSED TO WEAR NASAL CANNULA. PT IS SOB ON ROOM AIR. EXPLAINED BENEFITS PT STILL REFUSED. PT REFUSED TO REINSERT IV. PT STILL REFUSED AFTER BENEFITS WERE EXPLAINED, PT REFUSED TO WEAR TELE MONITOR.. PT IS NONCOMPLIANT WITH OVERALL NURSING CARE
--- NOTE | 2022-07-08 11:25 | NUR ---
rn note rounding on pt. pt had cigarettes at bedside. tried to removed pack of cigarettes. pt refused. explained risks. pt still refused. called security to remove cigarettes from patient. security spoke with patient and educated pt on safety and pt agreed. cigarettes taken and put in contraband safe on unit
[2022-07-08] MEDS: ENOXAPARIN SODIUM 40 MG/0.4 ML DISP.SYRIN SQ SCH (16:00)
--- NOTE | 2022-07-08 19:15 | NUR ---
MARKETING ANALYTICS SPECIALIST CLOSING NOTE PATIENT IN BED, AWAKE, A/O X 3. PATIENT HAS NO IV ACCESS, AND NO EXTERNAL PAINTER SUPERVISOR, CONTINUE REFUSING TO GET HIS VITAL SIGNS CHECKED, OR HIS BLOOD FOR LAB CHECK. URINATED ON FLOOR AROUND 4 TIMES. DENIES PAIN AT THIS TIME. REFUSE TO GET HYDRATION.
[2022-07-08 20:00] VITALS: BP 145/101
--- NOTE | 2022-07-08 20:13 | NUR ---
Received in bed naked sitting on the edga of the bed eating dinner offered to put the cardiac surgeon on he adamantly refused explained to him the importance of redeiving ATB and I would be gentle when I put the IV in he refused Noted he urinates on the floor He is alert but looks away when I speak about his care and to use the urinal
--- NOTE | 2022-07-08 22:30 | NUR ---
approached pt again and explained to him I would help him get better and cound I start his IV and give him an ATB and he agreed pieter started 02 on 2 liters n/c
[2022-07-09] MEDS: CEFEPIME 2 GM in IV D5W 100 ML IV SCH ×4 (02:42→18:06)
[2022-07-09 04:00] VITALS: BP 139/104
--- NOTE | 2022-07-09 04:29 | NUR ---
RN NOTES: APPROACHED PATIENT AGAIN AT 2200 AND ASKED HIM IF I COULD GIVE HIM HIS ATBS AND NEEDED TO START AN IV TO DO THIS SPEECH WAS HARD TO UNDERSTAND HE GRUNTED! HE PUT OUT HIS ARM AND SHOWED ME WHERE TO PLACE THE IV RIGHT TOP OF HAND 22G USED VANCOMYCIN GIVEN 2 HOURS LATE NOTED PATIENT URINATES AND STOOLS ON THE FLOOR. PLACED A BSC AT THE BEDSIDE AND EXPLAINED TO THE PATIENT TO TRY TO USE THE COMMODE
[2022-07-09] MEDS: VANCOMYCIN 1 GM in IV D5W 250 ML IV SCH ×3 (05:53→18:04)
[2022-07-09 07:38] LABS: HEMATOCRIT 42 % (39-51); HEMOGLOBIN 13.9 g/dL (13.5-17.5); LYMPHOCYTES # (AUTO) 0.9 K/uL (0.8-4.8); MEAN CORPUSCULAR HGB CONC 33 g/dl (31.0-36.0); MEAN CORPUSCULAR VOLUME 83 fL (80-96); MONOCYTES # (AUTO) 1.8 K/uL (0.1-1.30); MONOCYTES % (AUTO) 14.4 % (2.0-12.0); NEUTROPHILS # (AUTO) 9.9 K/uL (1.8-8.9); NEUTROPHILS % (AUTO) 78.6 % (43.0-81.0); PLATELET COUNT (AUTO) 297 K/uL (150-450); RED BLOOD CELL COUNT(AUTO) 5.09 MIL/uL (4.5-6.0); WHITE BLOOD COUNT (AUTO) 12.6 K/uL (4.3-11.0)
[2022-07-09 08:00] VITALS: BP 153/95
[2022-07-09] MEDS: PANTOPRAZOLE 40 MG TABLET.DR PO SCH (08:33)
[2022-07-09] MEDS: DEXAMETHASONE SOD PHOSPHATE 10 MG/ML VIAL IV SCH (08:33)
[2022-07-09 08:39] LABS: CALCIUM, SERUM 8.8 mg/dL (8.5-10.1); CREATININE 0.7 mg/dL (0.6-1.3); MAGNESIUM 1.8 mg/dL (1.8-2.4); PHOSPHORUS 2.5 mg/dL (2.5-4.9); POTASSIUM 4.1 mmol/L (3.5-5.1)
[2022-07-09] MEDS: ENOXAPARIN SODIUM 40 MG/0.4 ML DISP.SYRIN SQ SCH (08:43)
[2022-07-09] MEDS: CLOTRIMAZOLE 1% 15 GM TUBE TP SCH ×2 (09:00→17:00)
[2022-07-09] MEDS ORDERED: ALBUTEROL SULFATE 8 GM HFA.AER.AD IH PRN (12:30)
[2022-07-09 14:56] VITALS: BP 153/95
[2022-07-09 16:00] VITALS: BP 141/88
[2022-07-09] MEDS ORDERED: ALBU18HF2 IH (17:58)
[2022-07-09] MEDS ORDERED: SULF1TAB48 PO (17:58)
[2022-07-09] MEDS ORDERED: METH4TAB3 PO (17:58)
[2022-07-09] MEDS ORDERED: LACT10SO58 PO (17:58)
[2022-07-09] MEDS ORDERED: CEPH500T PO (17:58)
[2022-07-09] MEDS ORDERED: FURO-145 PO (18:13)
--- NOTE | 2022-07-09 18:45 | NUR ---
Patient awaiting transportation to [facility]. Report given to nursingNatacha, at receiving facility ([phone]). 2 attempts made to take pictures of patient's wounds for records; patient declined on both attempts. 1900 dose of Vanco and Cefepime given. Patient stated that he does not remember if he had home medications with him at the time of admission. Pharmacy was contacted to determine if patient home medication was handed over for storage. No records storage were found at pharmacy.
--- NOTE | 2022-07-09 19:41 | NUR ---
SENIOR RISK MANAGER NOTE PATIENT PICKED UP VIA AMBULANCE. PATIENT ALERT/ORIENTED X 3, PT ABLE TO MAKE NEEDS KNOWN. ALL BELONGINGS TAKEN WITH PATIENT. DISCHARGE PAPERS GIVEN TO PATIENT AND COPY GIVEN TO EMT'S FOR FACILITY. IV ACCESS ON RIGHT HAND #22G INTACT AND FLUSHING WELL, PER BARKEEPER PATIENT TO LEAVE WITH IV TO FACILITY
== END 2022-07-09 20:51 | DRG 720 ==
LOC: ER 10:45 → TELE1 14:00 → MEDSG1 07-08 10:39
PROVIDERS: ADMIT Student in an Organized Health Care Education/Training Program; ATTEND Nurse Practitioner Acute Care
DX: A41.89 Other specified sepsis (principal); J12.82 Pneumonia due to coronavirus disease 2019; E44.0 Moderate protein-calorie malnutrition; I11.0 Hypertensive heart disease with heart failure; U07.1 COVID-19; K83.1 Obstruction of bile duct; J15.9 Unspecified bacterial pneumonia; J90 Pleural effusion, not elsewhere classified; I50.9 Heart failure, unspecified; E87.1 Hypo-osmolality and hyponatremia; L03.116 Cellulitis of left lower limb; Z88.0 Allergy status to penicillin; Z59.00 Homelessness unspecified; Z78.9 Other specified health status; L03.115 Cellulitis of right lower limb; E87.6 Hypokalemia; E11.9 Type 2 diabetes mellitus without complications; K76.0 Fatty (change of) liver, not elsewhere classified; G47.33 Obstructive sleep apnea (adult) (pediatric); E66.9 Obesity, unspecified; Z68.36 Body mass index [BMI] 36.0-36.9, adult; I87.8 Other specified disorders of veins; S91.312A Laceration without foreign body, left foot, initial encounter; X58.XXXA Exposure to other specified factors, initial encounter; Y92.9 Unspecified place or not applicable; R74.01 Elevation of levels of liver transaminase levels; R78.4 Finding of other drugs of addictive potential in blood; Z87.891 Personal history of nicotine dependence; E88.09 Other disorders of plasma-protein metabolism, not elsewhere classified
CPT/HCPCS: 36415; 70450-TC; 71045-TC; 71250-TC; 76705-TC; 80048-TC; 80076-TC; 80202-TC; 81001; 82140-TC; 82962-TC; 83605-TC; 83615-TC; 83735-TC; 83880; 84100-TC; 84443-TC; 84484-TC; 85025-TC; 85378-TC; 85730-TC; 86140-TC; 87040-TC; 87086-TC; 97530-TC; A4349; C9803; G0378; G0480; J0692; J1100; J1650; J2270; J3370; J7040; J7050; J7060

== ENCOUNTER 2023-07-06 15:35 | Inpatient (IN) | payer OTHER ==
[~2023-07-06] VITALS: Ht 182.9 cm; Wt 135.6 kg
[~2023-07-06 15:35] MED LIST: ALBU18HF2 IH; CEPH500T PO; FURO-145 PO; LACT10SO58 PO; METH4TAB3 PO; SULF1TAB48 PO
[2023-07-06] MEDS ORDERED: FUROSEMIDE 20 MG/2 ML VIAL ONE (16:51)
[2023-07-06] MEDS ORDERED: FUROSEMIDE 20 MG/2 ML VIAL IV ONE (17:00)
[2023-07-06] MEDS ORDERED: VANCOMYCIN 1 GM in IV D5W 250 ML IV ONE (17:00)
[2023-07-06] MEDS ORDERED: AZTREONAM 1 G in IV NS 0.9% 100 ML IV ONE (17:00)
[2023-07-06 17:01] LABS: BASOPHILS # (AUTO) 0.2 K/uL (0.0-0.2); BASOPHILS % (AUTO) 2.6 % (0.0-2.0); EOSINOPHILS # (AUTO) 0.2 K/uL (0.0-0.7); HEMATOCRIT 45 % (39-51); HEMOGLOBIN 14.3 g/dL (13.5-17.5); LYMPHOCYTES # (AUTO) 0.9 K/uL (0.8-4.8); LYMPHOCYTES % (AUTO) 11.4 % (20.0-44.0); MEAN CORPUSCULAR HEMOGLOBIN 27 PG (26.0-33.0); MEAN CORPUSCULAR HGB CONC 32 g/dl (31.0-36.0); MEAN CORPUSCULAR VOLUME 83 fL (80-96); MONOCYTES # (AUTO) 0.6 K/uL (0.1-1.30); MONOCYTES % (AUTO) 7.8 % (2.0-12.0); NEUTROPHILS # (AUTO) 5.9 K/uL (1.8-8.9); NEUTROPHILS % (AUTO) 76.2 % (43.0-81.0); PLATELET COUNT (AUTO) 281 K/uL (150-450); RED BLOOD CELL COUNT(AUTO) 5.42 MIL/uL (4.5-6.0); RED CELL DISTRIBUTION WIDTH 16.9 % (11.5-15.0); WHITE BLOOD COUNT (AUTO) 7.8 K/uL (4.3-11.0)
[2023-07-06 17:15] LABS: CALCIUM, SERUM 9.2 mg/dL (8.5-10.1); CARBON DIOXIDE 31 mmol/L (21-32); CHLORIDE 94 mmol/L (98-107); CREATININE 0.7 mg/dL (0.6-1.3); GLUCOSE 150 mg/dL (74-106); POTASSIUM 5.1 mmol/L (3.5-5.1); SODIUM SERUM 130 mmol/L (136-145); UREA NITROGEN, BLOOD 7 mg/dL (7-18)
[2023-07-06] MEDS ORDERED: GLUC1KIT IM (17:26)
[2023-07-06] MEDS ORDERED: QUET50TA PO (17:26)
[2023-07-06] MEDS ORDERED: MELA3CAP PO (17:26)
[2023-07-06] MEDS ORDERED: ACET-868 PO (17:26)
[2023-07-06] MEDS ORDERED: INSU100V7 SQ (17:26)
[2023-07-06] MEDS ORDERED: MAGN400O6 PO (17:26)
[2023-07-06] MEDS ORDERED: QUET100T PO (17:26)
[2023-07-06] MEDS ORDERED: GABA-532 PO (17:26)
[2023-07-06] MEDS ORDERED: LINA5TAB PO (17:26)
[2023-07-06] MEDS ORDERED: NA P133E RC (17:26)
[2023-07-06] MEDS ORDERED: FURO-145 PO (17:26)
[2023-07-06] MEDS ORDERED: METF-442 PO (17:26)
[2023-07-06 17:27] LABS: ALANINE AMINOTRANSFERASE 16 U/L (12-78); ALBUMIN 3.2 g/dL (3.4-5.0); ALKALINE PHOSPHATASE 178 U/L (46-116); ASPARTATE AMINOTRANSFERASE 19 U/L (15-37); BILIRUBIN,DIRECT 0.4 mg/dL (0.0-0.2); BILIRUBIN,TOTAL 0.8 mg/dL (0.2-1.0); LIPASE 13 U/L (16-77); NT-PRO BNP 1543 pg/mL (0-125); TOTAL PROTEIN, SERUM 7.8 g/dL (6.4-8.2)
[2023-07-06] MEDS ORDERED: MELA3TAB41 PO (17:27)
[2023-07-06] MEDS ORDERED: MEROPENEM 1 G in IV NS 0.9% 100 ML IV ONE (17:30)
[2023-07-06 18:29] LABS: APPEARANCE,URINE CLEAR (CLEAR); BILIRUBIN,URINE NEGATIVE (NEGATIVE); BLOOD, URINE NEGATIVE Ery/uL (NEGATIVE); COLOR,URINE YELLOW (YELLOW); KETONES,URINE NEGATIVE (NEGATIVE); LEUKOCYTE ESTERASE ,URINE NEGATIVE (NEGATIVE); NITRITE, URINE NEGATIVE (NEGATIVE); PROTEIN,URINE TRACE mg/dl (NEGATIVE); UGLUCOSE NEGATIVE (NEGATIVE); UROBILINOGEN,URINE 0.2 EU/dL (0.2)
[2023-07-06] MEDS ORDERED: AZITHROMYCIN 500 MG in IV D5W 250 ML IV ONE (18:30)
[2023-07-06] MEDS ORDERED: hydrALAZINE HCL IV 20 MG VIAL IV PRN (20:30)
[2023-07-06] MEDS ORDERED: ACETAMINOPHEN 325 MG TABLET PO PRN (20:30)
[2023-07-06] MEDS ORDERED: INSULIN REGULAR, HUMAN 100 UNIT/ML 3 ML VIAL SQ PRN (20:30)
[2023-07-06] MEDS ORDERED: *INSULIN REGULAR(HUMULIN R)HUM 100 UNIT/ML VIAL SQ PRN (20:30)
[2023-07-06] MEDS ORDERED: MORPHINE SULFATE INJ 2 MG/ML DISP.SYRIN IV PRN (20:30)
[2023-07-06] MEDS ORDERED: ONDANSETRON HCL/PF 4 MG/2 ML VIAL IVP PRN (20:30)
[2023-07-06] MEDS ORDERED: ALBUTEROL FS 2.5 MG/0.5 ML VIAL.NEB NEB PRN (20:30)
[2023-07-06] MEDS ORDERED: DEXTROSE 50%-WATER 50 ML DISP.SYRIN IV PRN (20:30)
[2023-07-06 20:35] LABS: ADD URINE CULTURE NO; BACTERIA,URINE 1+ /HPF (None Seen); MUCUS,URINE Few /LPF (None Seen); RBC,URINE NONE SEEN /HPF (0-2); WBC,URINE NONE SEEN /HPF (0-3)
[2023-07-06 20:46] LABS: LYMPHOCYTES % (MANUAL) 13 % (16-48); MONOCYTES % (MANUAL) 10 % (0-11.0); NEUTROPHILS % (MANUAL) 77 (42-76); PLATELET ESTIMATE ADEQUATE
[2023-07-06] MEDS ORDERED: HEPARIN SODIUM, PORCINE 5000 UNITS/1 ML VIAL SQ SCH (21:00)
[2023-07-06] MEDS ORDERED: QUETIAPINE FUMARATE 100 MG TABLET ONE (21:41)
[2023-07-06] MEDS ORDERED: INSULIN GLARGINE, 100 UNIT/ML CARTRIDGE SQ SCH (22:00)
[2023-07-06] MEDS ORDERED: BLOOD SUGAR DIAGNOSTIC 1 EACH STRIP VI SCH (22:00)
[2023-07-06] MEDS ORDERED: QUETIAPINE FUMARATE 100 MG TABLET PO SCH (22:00)
[2023-07-06] MEDS ORDERED: CEFTRIAXONE 1 G in IV D5W 50 ML IV SCH (22:18)
[2023-07-06 23:11] VITALS: BP 128/75; TEMP 98; O2SAT 97
[2023-07-07] MEDS ORDERED: IPRATROPIUM/ALBUTEROL INHALER IH SCH
[2023-07-07] MEDS ORDERED: ALBUTEROL FS 2.5 MG/0.5 ML VIAL.NEB HHN SCH (08:02)
[2023-07-07] MEDS ORDERED: IPRATROPIUM NEB FS 0.5 MG/2.5 ML AMPUL.NEB NEB SCH (08:03)
[2023-07-07] MEDS ORDERED: GABAPENTIN 100 MG CAPSULE PO SCH (09:00)
[2023-07-07] MEDS ORDERED: QUETIAPINE FUMARATE 25 MG TABLET PO SCH (09:00)
[2023-07-07] MEDS ORDERED: FUROSEMIDE 40 MG/4 ML VIAL IV SCH (09:00)
[2023-07-07] MEDS ORDERED: CEFTRIAXONE 2 G in IV D5W 100 ML IV SCH (09:00)
[2023-07-07] MEDS ORDERED: AZITHROMYCIN 500 MG in IV D5W 250 ML IV SCH (18:00)
== END 2023-07-06 23:15 | disposition home or self-care (01) | DRG 139 ==
LOC: ER 15:43 → TRANSITION 22:13
PROVIDERS: ADMIT Internal Medicine; ATTEND Internal Medicine
DX: J18.9 Pneumonia, unspecified organism (principal); J96.21 Acute and chronic respiratory failure with hypoxia; I50.9 Heart failure, unspecified; E87.1 Hypo-osmolality and hyponatremia; Z20.822 Contact with and (suspected) exposure to COVID-19; E11.9 Type 2 diabetes mellitus without complications; Z88.0 Allergy status to penicillin; Z79.4 Long term (current) use of insulin; Z79.84 Long term (current) use of oral hypoglycemic drugs; Z79.899 Other long term (current) drug therapy; F20.9 Schizophrenia, unspecified; E66.01 Morbid (severe) obesity due to excess calories; Z68.41 Body mass index [BMI] 40.0-44.9, adult
CPT/HCPCS: 36415; 71045-TC; 80048-TC; 80076-TC; 81001; 83605-TC; 83690-TC; 83880; 84484-TC; 85025-TC; 87086-TC; 93307-TC; A4223; G0378; J0456; J0696; J1644; J1815; J1940; J2185; J3370; J3490; J7030; J7060